=== PATIENT | male | born 1975 | race Caucasian/White ===

== ENCOUNTER 2019-06-17 09:24 | Emergency (ER) | payer OTHER ==
[~2019-06-17] VITALS: Ht 170.2 cm; Wt 86.2 kg
[2019-06-17 09:37] VITALS: BP_SYST 143
[2019-06-17] MEDS ORDERED: NACL 0.9% 2,600 ML IV ONE (10:19)
[2019-06-17] MEDS ORDERED: AZITHROMYCIN 500 MG in NS 250 ML IV ONE (10:30)
[2019-06-17] MEDS ORDERED: KETOROLAC TROMETHAMINE 30 MG VIAL IVP ONE (10:30)
[2019-06-17 10:39] LABS: BASOPHILS % (AUTO) 0.3 % (0.0-2.0); EOSINOPHILS % (AUTO) 0.4 % (0.0-4.0); HEMATOCRIT 40.9 % (36-54); HEMOGLOBIN 14.5 g/dL (14.0-18.0); LYMPHOCYTES # (AUTO) 1.3 K/uL (1.0-5.5); LYMPHOCYTES % (AUTO) 12.9 % (20.5-51.5); MEAN CORPUSCULAR HEMOGLOBIN 33 pg (27-31); MEAN CORPUSCULAR HGB CONC 35 % (32-36); MEAN CORPUSCULAR VOLUME 94 fL (79.0-98.0); MONOCYTES # (AUTO) 1.2 K/uL (0.0-1.0); MONOCYTES % (AUTO) 12.2 % (1.7-9.3); NEUTROPHILS # (AUTO) 7.6 K/uL (1.8-7.7); NEUTROPHILS % (AUTO) 74.2 % (40.0-70.0); PLATELET COUNT (AUTO) 258 K/uL (130-430); RED BLOOD CELL COUNT(AUTO) 4.34 MIL/uL (4.2-6.2); WHITE BLOOD COUNT (AUTO) 10.2 K/uL (4.8-10.8)
[2019-06-17] MEDS ORDERED: AZITHROMYCIN 500 MG/VIAL (ZITHROMAX) IV ONE (10:54)
[2019-06-17 11:00] LABS: ALBUMIN 4.3 g/dL (3.4-4.8); CREATININE 0.93 mg/dL (0.55-1.30); POTASSIUM 3.7 mmol/L (3.5-5.1); TOTAL BILIRUBIN 0.6 mg/dL (0.0-1.0)
[2019-06-17 11:07] LABS: CALCIUM 9.2 mg/dL (8.4-11.0)
[2019-06-17 12:15] VITALS: BP_SYST 143
[2019-06-18] MEDS ORDERED: LEVO750T45 PO (05:31)
[2019-06-18] MEDS ORDERED: NAPR-1174 PO (05:31)
== END 2019-06-17 12:15 | disposition home or self-care (01) ==
LOC: SED 09:24
DX: J18.9 Pneumonia, unspecified organism (principal)
CPT/HCPCS: 36415; 36600; 71045; 80053; 82803; 83605; 85025; 87040; 93005; 96365; 96366; 96368; 96375; 99284; J0456; J1885; J1956; J7030

== ENCOUNTER 2019-06-18 00:48 | Inpatient (IN) | payer OTHER ==
[2019-06-18] VITALS (8 sets, daily range): BP systolic 130–141
[~2019-06-18] VITALS: Ht 170.2 cm; Wt 101.2 kg
[2019-06-18 02:21] LABS: BASOPHILS % (AUTO) 0.3 % (0.0-2.0); EOSINOPHILS % (AUTO) 0.2 % (0.0-4.0); HEMATOCRIT 38.8 % (36-54); HEMOGLOBIN 13.7 g/dL (14.0-18.0); MEAN CORPUSCULAR HEMOGLOBIN 34 pg (27-31); MEAN CORPUSCULAR HGB CONC 35 % (32-36); MEAN CORPUSCULAR VOLUME 95 fL (79.0-98.0); MONOCYTES # (AUTO) 1.3 K/uL (0.0-1.0); MONOCYTES % (AUTO) 10.6 % (1.7-9.3); NEUTROPHILS # (AUTO) 10.3 K/uL (1.8-7.7); NEUTROPHILS % (AUTO) 80.9 % (40.0-70.0); PLATELET COUNT (AUTO) 275 K/uL (130-430); RED BLOOD CELL COUNT(AUTO) 4.09 MIL/uL (4.2-6.2); RED CELL DISTRIBUTION WIDTH 12.9 % (9.0-15.0); WHITE BLOOD COUNT (AUTO) 12.7 K/uL (4.8-10.8)
[2019-06-18 02:35] LABS: CALCIUM 9.1 mg/dL (8.4-11.0); CREATININE 0.97 mg/dL (0.55-1.30); POTASSIUM 4.2 mmol/L (3.5-5.1)
[2019-06-18 02:44] LABS: INR 1.1 (0.80-1.20); PROTHROMBIN TIME 10.8 SECS (9.5-12.5)
[2019-06-18 02:50] LABS: ALBUMIN 4.2 g/dL (3.4-4.8); TOTAL BILIRUBIN 0.7 mg/dL (0.0-1.0)
[2019-06-18] MEDS ORDERED: IOHEXOL 350 mgI/mL, 150 ML INFUS..BTL IV ONE (03:42)
[2019-06-18 03:51] LABS: BILIRUBIN,URINE NEGATIVE (NEGATIVE); BLOOD, URINE NEGATIVE (NEGATIVE); CLARITY/URINE CLEAR (CLEAR); COLOR,URINE YELLOW (YELLOW); GLUCOSE,URINE NEGATIVE (NEGATIVE); KETONES,URINE NEGATIVE (NEGATIVE); LEUKOCYTE ESTERASE ,URINE NEGATIVE (NEGATIVE); NITRITE, URINE NEGATIVE (NEGATIVE); PH,URINE 5.5 (5.0-8.0); PROTEIN URINE NEGATIVE (NEGATIVE); UROBILINOGEN,URINE 0.2 (0.2-1.0)
[2019-06-18] MEDS ORDERED: NAPR-1174 PO (05:31)
[2019-06-18] MEDS ORDERED: LEVO750T45 PO (05:31)
[2019-06-18] MEDS ORDERED: PIPERACILLIN/TAZO 3.375 GM in NS 50 ML IV ONE (07:00)
[2019-06-18] MEDS ORDERED: PIPERACILLIN/TAZOBACTAM 3.375 GM/VIAL (ZOSYN) IV ONE (07:28)
[2019-06-18] MEDS ORDERED: ALBUTEROL SULFATE 0.083% 2.5 MG/3 ML VIAL.NEB INH PRN (08:30)
[2019-06-18] MEDS ORDERED: IPRATROPIUM BROM 0.5 MG/2.5 ML VIAL.NEB (ATROVENT) INH PRN (08:30)
[2019-06-18] MEDS ORDERED: cefTRIAXone 1 GM in D5W 50 ML IV SCH (09:00)
[2019-06-18] MEDS: AZITHROMYCIN 500 MG in NS 250 ML IV SCH (10:12)
[2019-06-18] MEDS ORDERED: MORPHINE 4 MG/ML INJ. SYRINGE IVP PRN (10:45)
[2019-06-18] MEDS ORDERED: MORPHINE 2 MG/ML INJ. SYRINGE IVP PRN (10:45)
[2019-06-18] MEDS ORDERED: THIAMINE HCL 100 MG TABLET PO ONE (11:00)
[2019-06-18] MEDS: ACETAMINOPHEN 325 MG TABLET PO PRN ×2 (12:35→20:48)
[2019-06-18] MEDS: IPRATROPIUM BROM 0.5 MG/2.5 ML VIAL.NEB (ATROVENT) INH SCH ×2 (13:25→19:22)
[2019-06-18] MEDS: ALBUTEROL SULFATE 0.083% 2.5 MG/3 ML VIAL.NEB INH SCH ×2 (13:25→19:21)
[2019-06-18] MEDS: PIPERACILLIN/TAZO 3.375/DEX-IS 50 ML IV SCH (17:18)
[2019-06-19] MEDS: PIPERACILLIN/TAZO 3.375/DEX-IS 50 ML IV SCH ×5 (00:09→23:48)
[2019-06-19 00:10] VITALS: BP_SYST 121
[2019-06-19] MEDS: IPRATROPIUM BROM 0.5 MG/2.5 ML VIAL.NEB (ATROVENT) INH SCH ×4 (00:46→20:19)
[2019-06-19] MEDS: ALBUTEROL SULFATE 0.083% 2.5 MG/3 ML VIAL.NEB INH SCH ×4 (00:47→20:19)
[2019-06-19 04:40] VITALS: BP_SYST 116
[2019-06-19 06:10] LABS: BASOPHILS % (AUTO) 0.4 % (0.0-2.0); EOSINOPHILS # (AUTO) 0.1 K/uL (0.0-0.4); HEMATOCRIT 37.5 % (36-54); MEAN CORPUSCULAR HEMOGLOBIN 33 pg (27-31); MEAN CORPUSCULAR HGB CONC 35 % (32-36); MEAN CORPUSCULAR VOLUME 96 fL (79.0-98.0); MONOCYTES # (AUTO) 0.9 K/uL (0.0-1.0); MONOCYTES % (AUTO) 10.3 % (1.7-9.3); NEUTROPHILS # (AUTO) 5.9 K/uL (1.8-7.7); NEUTROPHILS % (AUTO) 66.3 % (40.0-70.0); PLATELET COUNT (AUTO) 290 K/uL (130-430); RED BLOOD CELL COUNT(AUTO) 3.92 MIL/uL (4.2-6.2); RED CELL DISTRIBUTION WIDTH 12.9 % (9.0-15.0); WHITE BLOOD COUNT (AUTO) 8.9 K/uL (4.8-10.8)
[2019-06-19 08:27] VITALS: BP_SYST 138
[2019-06-19] MEDS: THIAMINE HCL 100 MG TABLET PO SCH (08:29)
[2019-06-19] MEDS: ACETAMINOPHEN 325 MG TABLET PO PRN (08:29)
[2019-06-19] MEDS: AZITHROMYCIN 500 MG in NS 250 ML IV SCH (09:39)
[2019-06-19 13:57] VITALS: BP_SYST 140
[2019-06-19 16:00] VITALS: BP_SYST 141
[2019-06-19 20:41] VITALS: BP_SYST 134
[2019-06-20] VITALS: BP_SYST 130
[2019-06-20] MEDS: IPRATROPIUM BROM 0.5 MG/2.5 ML VIAL.NEB (ATROVENT) INH SCH ×2 (01:43→07:22)
[2019-06-20] MEDS: ALBUTEROL SULFATE 0.083% 2.5 MG/3 ML VIAL.NEB INH SCH ×2 (01:43→07:22)
[2019-06-20 06:58] LABS: BASOPHILS # (AUTO) 0.1 K/uL (0.0-0.2); BASOPHILS % (AUTO) 0.9 % (0.0-2.0); EOSINOPHILS # (AUTO) 0.1 K/uL (0.0-0.4); EOSINOPHILS % (AUTO) 1.9 % (0.0-4.0); HEMATOCRIT 37.4 % (36-54); LYMPHOCYTES # (AUTO) 1.9 K/uL (1.0-5.5); MEAN CORPUSCULAR HEMOGLOBIN 33 pg (27-31); MEAN CORPUSCULAR HGB CONC 35 % (32-36); MEAN CORPUSCULAR VOLUME 96 fL (79.0-98.0); MONOCYTES # (AUTO) 0.8 K/uL (0.0-1.0); MONOCYTES % (AUTO) 9.9 % (1.7-9.3); NEUTROPHILS # (AUTO) 5.1 K/uL (1.8-7.7); NEUTROPHILS % (AUTO) 63.3 % (40.0-70.0); PLATELET COUNT (AUTO) 344 K/uL (130-430); WHITE BLOOD COUNT (AUTO) 8.1 K/uL (4.8-10.8)
[2019-06-20 07:14] LABS: ALBUMIN 3.5 g/dL (3.4-4.8); CREATININE 0.98 mg/dL (0.55-1.30); POTASSIUM 3.8 mmol/L (3.5-5.1); TOTAL BILIRUBIN 0.5 mg/dL (0.0-1.0)
[2019-06-20 07:42] LABS: THYROID STIMULATING HORMONE 1.64 uIu/mL (0.36-3.74)
[2019-06-20 07:45] VITALS: BP_SYST 145
[2019-06-20 08:10] LABS: ERYTHROCYTE SEDIMENTATION RATE 75 MM/HR (0-15)
[2019-06-20] MEDS: PIPERACILLIN/TAZO 3.375/DEX-IS 50 ML IV SCH (08:17)
[2019-06-20] MEDS: THIAMINE HCL 100 MG TABLET PO SCH (08:37)
[2019-06-20] MEDS: AZITHROMYCIN 500 MG in NS 250 ML IV SCH (10:24)
[2019-06-20 11:08] VITALS: BP_SYST 125
[2019-06-20] MEDS ORDERED: AMOX-426 PO (11:13)
[2019-06-20 11:31] VITALS: BP_SYST 125
[2019-06-20 12:26] VITALS: BP_SYST 125
== END 2019-06-20 11:45 | disposition home or self-care (01) | DRG 299 ==
LOC: SED 00:48 → STU 06:53 → SMU 06-20 10:31
PROVIDERS: ADMIT Internal Medicine Hospice and Palliative Medicine; ATTEND Internal Medicine Hospice and Palliative Medicine
DX: I76 Septic arterial embolism (principal); J18.9 Pneumonia, unspecified organism; K04.7 Periapical abscess without sinus; I10 Essential (primary) hypertension; Z90.49 Acquired absence of other specified parts of digestive tract; Z83.3 Family history of diabetes mellitus; Z80.8 Family history of malignant neoplasm of other organs or systems
CPT/HCPCS: 36415; 36600; 71045; 71046-TC; 71275; 80053; 80061; 81003; 82803-TC; 83605; 84443-TC; 84484; 85025; 85379; 85610-TC; 85651-TC; 85730-TC; 87040-TC; 93005; 93306; 94640; 94760; 96365; 99285; G0378; J0456; J0696; J2270; J2543; J7050; J7060; J7613; Q9967